=== PATIENT | male | born 2000 | race Two or more races ===

== ENCOUNTER 2024-04-28 14:56 | Emergency (ER) | payer BC ==
[~2024-04-28] VITALS: Ht 182.9 cm; Wt 72.6 kg
[2024-04-28 15:18] VITALS: BP 123/70; TEMP 98.3
[2024-04-28] MEDS ORDERED: CETI-90 PO (15:38)
[2024-04-28] MEDS ORDERED: FLUT16SP16 BNOSTRILS (15:38)
[2024-04-28 16:50] VITALS: O2SAT 98
== END 2024-04-28 18:41 | disposition home or self-care (01) ==
LOC: ER 15:01
DX: S62.92XA Unspecified fracture of left hand, initial encounter for closed fracture (principal); M79.642 Pain in left hand; X50.9XXA Other and unspecified overexertion or strenuous movements or postures, initial encounter; Y93.89 Activity, other specified; Y92.89 Other specified places as the place of occurrence of the external cause; Y99.8 Other external cause status
CPT/HCPCS: 73130-TC